=== PATIENT | male | born 1985 | race Hispanic/Latino ===

== ENCOUNTER 2021-07-17 12:01 | Emergency (ER) | payer MEDICAID ==
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
[2021-07-17] MEDS ORDERED: ACETAMINOPHEN 500 MG TAB PO ONE (13:00)
[2021-07-17] MEDS ORDERED: HYDROmorphone 1 MG/1 ML INJ IM ONE (13:27)
[2021-07-17 13:42] VITALS: BP 134/90
== END 2021-07-17 14:18 | disposition home or self-care (01) ==
LOC: ED 12:01
DX: M54.5 Low back pain (principal); I12.9 Hypertensive chronic kidney disease with stage 1 through stage 4 chronic kidney disease, or unspecified chronic kidney disease; N18.9 Chronic kidney disease, unspecified; F41.8 Other specified anxiety disorders; F32.9 Major depressive disorder, single episode, unspecified; F43.10 Post-traumatic stress disorder, unspecified; J45.909 Unspecified asthma, uncomplicated; G89.29 Other chronic pain; Z98.890 Other specified postprocedural states
CPT/HCPCS: 96372; 99282; J1170

== ENCOUNTER 2022-02-26 13:15 | Emergency (ER) | payer MEDICAID ==
[2022-02-26 13:55] VITALS: BP 123/80
--- NOTE | 2022-03-02 13:09 | Electrocardiograph Report ---
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
== END 2022-02-26 22:00 | disposition left against medical advice (07) ==
LOC: ED 13:15
DX: R07.9 Chest pain, unspecified (principal); Z53.21 Procedure and treatment not carried out due to patient leaving prior to being seen by health care provider
CPT/HCPCS: 93005

== ENCOUNTER 2022-05-12 15:27 | Emergency (ER) | payer SELFPAY ==
[2022-05-12 15:37] VITALS: BP 129/88
[2022-05-13] MEDS ORDERED: diphenhydrAMINE 25 MG CAP PO ONE (02:09)
[2022-05-13] MEDS ORDERED: ACETAMINOPHEN 500 MG TAB PO ONE (02:10)
[2022-05-13] MEDS: METOCLOPRAMIDE 10 MG TAB PO ONE (02:38)
--- NOTE | 2022-05-13 02:46 | Cat Scan Report ---
CT head without contrast INDICATION : headache s/p fall. TECHNIQUE: Axial imaging performed from the skull apex through the skull base without the use of con trast. All CT scans at this location are performed using CT dose reduction for ALARA by means of aut omated exposure control. COMPARISON: None FINDINGS: Parenchyma: No mass, stroke or hemorrhage. Ventricles: Ventricles are normal in size and appear symmetric. Soft tissues: Soft tissues including the orbits appear normal. Bones: No acute osseous abnormality. Sinuses: Sinuses and mastoid air cells are clear. IMPRESSION: No acute abnormality. Signer Name: Judd Amlanza MD Signed: 05/13/2022 2:42 AM Workstation Name: [id number]
--- NOTE | 2022-05-13 02:49 | Cat Scan Report ---
CT cervical spine wo con INDICATION: Neck Pain s/p fall. TECHNIQUE: All CT scans at this location are performed using the following dose modulation technique: Automated exposure control. CONTRAST: None. COMPARISON: None available. FINDINGS: Satisfactory alignment without bony injury or significant degenerative change. No soft tissue injury or suspicious soft tissue abnormality. IMPRESSION: Unremarkable CT cervical spine without contrast. Signer Name: Judd Almanza MD Signed: 05/13/2022 2:45 AM Workstation Name: [id number]
--- NOTE | 2022-05-13 03:53 | Emergency Department Report ---
ED Fall HPI - General Chief Complaint: Fall Stated Complaint: FALL/HEAD PAIN Time Seen by Provider: 05/13/22 02:09 Source: patient Mode of arrival: Ambulatory - History of Present Illness Initial Comments: Patient 37-year-old male who presents for headache and neck pain status post ground-level fall at home. Patient states he slipped at home and fell backwards landing on his head now with 7/10 headache and pressure radiating to bilateral frontal there is some photophobia and nausea neck pain is described at 4/10 posterior neck sharp and achy. There is no numbness no tingling no paralysis there is minimal decrease or loss of bowel or bladder function. There is no abrasions laceration or bleeding. There is been no epistaxis no vomiting patient is ambulatory with cane at baseline for this patient secondary to previous injury. MD Complaint: fall - Related Data Previous Rx's Medication Instructions Recorded Last Taken Type Acetaminophen [Acetaminophen TAB] 1,000 mg PO Q6HR PRN #30 tablet 05/13/22 Unknown Rx Metoclopramide [Reglan] 10 mg PO TID PRN #30 tab 05/13/22 Unknown Rx diphenhydrAMINE [Benadryl CAP] 25 mg PO Q8HR PRN #30 capsule 05/13/22 Unknown Rx Allergies Allergy/AdvReac Type Severity Reaction Status Date / Time ibuprofen [From Motrin] Allergy Anaphylaxis Verified 05/12/22 15:39 lorazepam [From Ativan] Allergy Anaphylaxis Verified 05/12/22 15:38 ED Review of Systems ROS: Stated complaint: FALL/HEAD PAIN Other details as noted in HPI Constitutional: denies: chills, fever Eyes: denies: eye pain, eye discharge, vision change ENT: denies: ear pain, throat pain Respiratory: denies: cough, shortness of breath, wheezing Cardiovascular: denies: chest pain, palpitations Endocrine: no symptoms reported Gastrointestinal: denies: abdominal pain, nausea, diarrhea Genitourinary: denies: urgency, dysuria Musculoskeletal: denies: back pain, joint swelling, arthralgia Skin: denies: rash, lesions Neurological: denies: headache, weakness, paresthesias Psychiatric: denies: anxiety, depression Hematological/Lymphatic: denies: easy bleeding, easy bruising ED Past Medical Hx - Past Medical History Hx Hypertension: Yes Hx Renal Disease: Yes Hx Psychiatric Treatment: Yes (ptsd bipolar depression anxiety) Hx Asthma: Yes - Surgical History Additional Surgical History: 2 rt ankle sx, rt knee sx - Social History Smoking Status: Never Smoker Substance Use Type: None - Medications Home Medications: Home Medications Medication Instructions Recorded Confirmed Last Taken Type Acetaminophen [Acetaminophen TAB] 1,000 mg PO Q6HR PRN #30 tablet 05/13/22 Unknown Rx Metoclopramide [Reglan] 10 mg PO TID PRN #30 tab 05/13/22 Unknown Rx diphenhydrAMINE [Benadryl CAP] 25 mg PO Q8HR PRN #30 capsule 05/13/22 Unknown Rx ED Physical Exam - General Limitations: No Limitations General appearance: alert, in no apparent distress - Head Head exam: Present: normocephalic, normal inspection - Expanded Head Exam Expanded Head exam: Absent: laceration, abrasion, contusion, hematoma, general tender ness, tenderness of temporal artery - Eye Eye exam: Present: PERRL, EOMI. Absent: conjunctival injection, nystagmus Pupils: Present: normal accommodation - ENT ENT exam: Present: normal orophraynx, mucous membranes moist, TM's normal bilaterally, normal external ear exam - Neck Neck exam: Present: normal inspection, tenderness (No posterior vertebral point tenderness mild paraspinous muscle tenderness to deep palpation. Range of motion is intact unrestricted to all quadrants there is no crepitus no step-off no ecchymosis no deformity.), full ROM. Absent: lymphadenopathy - Respiratory Respiratory exam: Present: normal lung sounds bilaterally. Absent: respiratory distress, wheezes, stridor, chest wall tenderness - Cardiovascular Cardiovascular Exam: Present: regular rate, normal rhythm, normal heart sounds. Absent: systolic murmur, diastolic murmur, rubs, gallop - GI/Abdominal GI/Abdominal exam: Present: soft, normal bowel sounds. Absent: distended, tenderness - Rectal Rectal exam: Present: deferred - Extremities Exam Extremities exam: Present: normal inspection, full ROM, normal capillary refill - Back Exam Back exam: Present: normal inspection, full ROM. Absent: paraspinal tenderness, vertebral tenderness - Expanded Back Exam Expanded Back exam: Absent: saddle anesthesia Back exam: Negative Straight Leg Raising: Left, Right - Neurological Exam Neurological exam: Present: alert, oriented X3, CN II-XII intact, normal gait, reflexes normal. Absent: motor sensory deficit - Expanded Neurological Exam Expanded Patient oriented to: Present: person, place, time Speech: Present: fluid speech Cranial nerves: EOM's Intact: Normal, Gag Reflex: Normal, Tongue Deviation: Normal, Nystagmus: Normal, Facial Sensation: Normal Upper motor neuron: Alfredo Neglect: Normal Motor strength exam: RUE: 5, LUE: 5, RLE: 5, LLE: 5 DTR: knee (R): 1+, knee (L): 1+ Best Eye Response ([place]): (4) open spontaneously Best Motor Response ([place]): (6) obeys commands Best Verbal Response ([place]): (5) oriented [place] Total: 15 - Psychiatric Psychiatric exam: Present: normal affect, normal mood - Skin Skin exam: Present: warm, dry, intact, normal color. Absent: rash ED Course Vital Signs 05/12/22 05/13/22 15:36 02:37 Temperature 98.7 F Pulse Rate 105 H Respiratory 18 16 Rate Blood Pressure 129/88 O2 Sat by Pulse 97 Oximetry ED Medical Decision Making - Radiology Data INDICATION / CLINICAL INFORMATION: injury, pain and swelling COMPARISON: None available. FINDINGS: BONES / JOINT(S): Mildly comminuted fracture of the central calcaneus extending to the posterior subtalar joint. No other ankle or hindfoot fracture. No significant arthritis. SOFT TISSUES: No significant abnormality. ADDITIONAL FINDINGS: None. IMPRESSION: 1. Calcaneal fracture. Signer Name: Kristi Riley MD Signed: 05/12/2022 5:46 PM Workstation Name: [id number] Transcribed By: DT Dictated By: Catalino Riley MD Electronically Authenticated By: Catalino Riley MD Signed Date/Time: 05/12/221745 DD/ 45 TD/TT: Print Cancel INDICATION / CLINICAL INFORMATION: injury, pain and swelling COMPARISON: None available. FINDINGS: BONES / JOINT(S): Mildly comminuted fracture of the central calcaneus extending to the posterior subtalar joint. No other ankle or hindfoot fracture. No significant arthritis. SOFT TISSUES: No significant abnormality. ADDITIONAL FINDINGS: None. IMPRESSION: 1. Calcaneal fracture. Signer Name: Kristi Riley MD Signed: 05/12/2022 5:46 PM Workstation Name: [id number] Transcribed By: DT Dictated By: Catalino Riley MD Electronically Authenticated By: Catalino Riley MD Signed Date/Time: 05/12/221745 DD/ 45 TD/TT: Print Cancel - Medical Decision Making CT normal no fracture no subluxation no dislocation no bleeding no mass no soft tissue abnormality. Patient advises headache is improved with medication given in ED. There are no lacerations abrasions or bleeding. Mentation is appropriate patient appears nontoxic. Patient recalls entire event. Patient is amatory with steady gait with cane. This is baseline for this patient patient will be DC'd home with diagnosis Minor closed head injury. Patient given head injury precautions. Patient will be DC with prescriptions for headache. Patient will follow up with primary care doctor in 2 to 3 days. Patient verbalized agreement understanding discharge plan. Patient will be DC'd home in stable condition at this time. Critical care attestation.: If time is entered above; I have spent that time in minutes in the direct care of this critically ill patient, excluding procedure time. ED Disposition Clinical Impression: Minor head injury without loss of consciousness Qualifiers: Encounter type: initial encounter Qualified Code(s): S09.90XA - Unspecified injury of head, initial encounter Disposition: HOME / SELF CARE / HOMELESS Is pt being admited?: No Does the pt Need Aspirin: No Condition: Stable Instructions: Head Injury, Adult, Concussion, Adult, [id number] Additional Instructions: Take medication as prescribed, follow-up with your doctor in 2 to 3 days return to emergency department should symptoms worsen Prescriptions: Acetaminophen [Acetaminophen TAB] 1,000 mg PO Q6HR PRN #30 tablet PRN Reason: Headache diphenhydrAMINE [Benadryl CAP] 25 mg PO Q8HR PRN #30 capsule PRN Reason: Headache Metoclopramide [Reglan] 10 mg PO TID PRN #30 tab PRN Reason: Headache Referrals: MELITA TEAGUE MD [Staff Physician] - 3-5 Days Forms: Work/School Release Form(ED) Time of Disposition: 04:05
== END 2022-05-13 05:27 | disposition home or self-care (01) ==
LOC: ED 15:27
DX: S09.90XA Unspecified injury of head, initial encounter (principal); I12.9 Hypertensive chronic kidney disease with stage 1 through stage 4 chronic kidney disease, or unspecified chronic kidney disease; N18.9 Chronic kidney disease, unspecified; F43.10 Post-traumatic stress disorder, unspecified; F41.9 Anxiety disorder, unspecified; F32.9 Major depressive disorder, single episode, unspecified; J45.909 Unspecified asthma, uncomplicated; Z98.890 Other specified postprocedural states; Z88.6 Allergy status to analgesic agent; Z88.8 Allergy status to other drugs, medicaments and biological substances; W01.0XXA Fall on same level from slipping, tripping and stumbling without subsequent striking against object, initial encounter; Y93.89 Activity, other specified; Y92.89 Other specified places as the place of occurrence of the external cause; Y99.8 Other external cause status
CPT/HCPCS: 70450; 72125; 99283